=== PATIENT | female | born 1995 | race Caucasian/White ===

== ENCOUNTER 2016-05-20 18:59 | Emergency (ER) | payer SELFPAY ==
[2016-05-20 19:05] VITALS: BP 125/71
--- NOTE | 2016-05-20 19:15 | ER Document Report ---
ED Medical Screen (RME) - General Stated Complaint: ABDOMINAL CRAMPING Time seen by provider: 19:13 Mode of Arrival: Ambulatory Information source: Patient Notes: 20-year-old female that had 2 positive tests at home on May 12 and has some mild midline pelvic cramping. While she was at work today she got lightheaded and dizzy. G1. no vaginal bleeding. No dysuria. No fever. LMP 12 -28-16 TRAVEL OUTSIDE OF THE [place] IN LAST 30 DAYS: No Past Medical History - Immunizations Hx Diphtheria, Pertussis, Tetanus Vaccination: Yes Physical Exam - Vital signs Vitals: Temp Pulse Resp BP Pulse Ox 98.5 F 91 18 125/71 100 05/20/16 19:04 05/20/16 19:04 05/20/16 19:04 05/20/16 19:04 05/20/16 19:04 Course - Vital Signs Vital signs: Temp Pulse Resp BP Pulse Ox 98.5 F 91 18 125/71 100 05/20/16 19:04 05/20/16 19:04 05/20/16 19:04 05/20/16 19:04 05/20/16 19:04
[2016-05-20 19:56] LABS: APPEARANCE,URINE CLEAR; BILIRUBIN,URINE NEGATIVE (NEGATIVE); GLUCOSE, URINE 50 mg/dL (NEGATIVE); KETONES,URINE NEGATIVE (NEGATIVE); LEUKOCYTE ESTERASE,URINE TRACE (NEGATIVE); NITRITE,URINE NEGATIVE (NEGATIVE); PROTEIN,URINE NEGATIVE (NEGATIVE); URINE SPECIFIC GRAVITY 1.011; UROBILINOGEN,URINE NEGATIVE mg/dL (<2.0)
--- NOTE | 2016-05-20 20:43 | ER Document Report ---
ED GI/ - General Chief Complaint: Dizziness Stated Complaint: ABDOMINAL CRAMPING Mode of Arrival: Ambulatory Notes: Patient is a 20-year-old female presents emergency Department complaining of abdominal cramping for 2 weeks as well as burning with urination. Patient states that she hasn't had a period since 04/05/2016. Recently took a test which was positive so she came in for evaluation. Patient is a with otherwise no other past medical history, past surgical history, social history. She denies any allergies. She admits to light spotting couple weeks ago but otherwise intermittent abdominal cramping daily. Eyes any nausea , vomiting, diarrhea, constipation. Last bowel movement was today which was normal. TRAVEL OUTSIDE OF THE [place] IN LAST 30 DAYS: No - Related Data Allergies/Adverse Reactions: No Known Allergies Allergy (Unverified 05/20/16 20:24) Past Medical History - General Information source: Patient - Social History Smoking Status: Never Smoker Family History: Reviewed & Not Pertinent Renal/ Medical History: Denies: Hx Peritoneal Dialysis Surgical Hx: Negative - Immunizations Hx Diphtheria, Pertussis, Tetanus Vaccination: Yes Review of Systems - Review of Systems Constitutional: No symptoms reported EENT: No symptoms reported Cardiovascular: No symptoms reported Respiratory: No symptoms reported Gastrointestinal: No symptoms reported Genitourinary: No symptoms reported Female Genitourinary: See HPI Musculoskeletal: No symptoms reported Skin: No symptoms reported Hematologic/Lymphatic: No symptoms reported Neurological/Psychological: No symptoms reported Physical Exam - Vital signs Vitals: Temp Pulse Resp BP Pulse Ox 98.5 F 91 18 125/71 100 05/20/16 19:04 05/20/16 19:04 05/20/16 19:04 05/20/16 19:04 05/20/16 19:04 - Notes Notes: PHYSICAL EXAM GENERAL: Alert, interacts well. LUNGS: Clear to auscultation bilaterally, no wheezes, rales, or rhonchi. No respiratory distress. HEART: Regular rate and rhythm. No murmurs, gallops, or rubs. ABDOMEN: Soft, nondistended, nontender. No guarding, rebound, or rigidity.. Bowel sounds present in all 4 quadrants. Female exam deferred EXTREMITIES: Moves all 4 extremities spontaneously. No edema, radial and dorsalis pedis pulses 2/4 bilaterally. No cyanosis. NEUROLOGICAL: Alert and oriented x3. Normal speech. PSYCH: Normal affect, normal mood. SKIN: Warm, dry, normal turgor. No rashes or lesions noted. Course - Re-evaluation Re-evalutation: 05/20/16 20:43 Patient is a 20-year-old female who complains of abdominal cramping for the past 2 weeks but otherwise denies any other pain or symptoms. Transvaginal ultrasound reveals a living IUP about 6 weeks, was not able to obtain a heart rate. Analysis reveals a UTI. Patient otherwise feeling well and like to go home. Patient has a follow-up appointment scheduled for May 24 with OB/ [facility] will send her home with ultrasound read and lab work from today. She denies any questions - Vital Signs Vital signs: Temp Pulse Resp BP Pulse Ox 98.5 F 91 18 125/71 100 05/20/16 19:11 05/20/16 19:11 05/20/16 19:11 05/20/16 19:11 05/20/16 19:11 - Laboratory Laboratory results interpreted by me: 05/20/16 05/20/16 19:30 19:35 Beta HCG, Quant 03964.00 H Urine Glucose (UA) 50 H Ur Leukocyte Esterase TRACE H Discharge - Discharge Clinical Impression: Qualifiers: Weeks of gestation: less than 8 weeks Qualified Code(s): Z3A.01 - Less than 8 weeks gestation of UTI (urinary tract infection) Qualifiers: Urinary tract infection type: acute cystitis Hematuria presence: without hematuria Qualified Code(s): N30.00 - Acute cystitis without hematuria Condition: Good Disposition: HOME, SELF-CARE Instructions: Nitrofurantoin ([facility]), Urinary Tract Infection ([facility]) Additional Instructions: You are . care is best started as early in as possible. If you're unsure about continuing this , you should discuss this with your physician or with wine consultant at [facility]. You should take only medications approved by your physician. Acetaminophen can safely be taken for minor pains. As a rule, medication for chronic conditions such as asthma or seizures can safely be continued. You should discuss with the physician every medicine you take. Any regular exercise program can be continued. Talk to your physician, however, before engaging in competitive or demanding sports. Alcohol, smoking, and "street drugs" are dangerous to your baby. Cocaine is especially dangerous. Don't use any illicit drugs! Please be sure to start a vitamin with folate acid included. These are available at any drug store and most grocery stores. Prescriptions: Nitrofurantoin/Nitrofuran Mac [Macrobid 100 mg Capsule] 1 tab PO BID #20 capsule
== END 2016-05-20 21:20 | disposition home or self-care (01) ==
LOC: ER 18:59
DX: O23.11 Infections of bladder in pregnancy, first trimester (principal); N30.00 Acute cystitis without hematuria; R42 Dizziness and giddiness; R10.9 Unspecified abdominal pain; Z3A.01 Less than 8 weeks gestation of pregnancy
CPT/HCPCS: 36415; 76817; 81001; 84702; 87086; 99284

== ENCOUNTER 2016-06-23 23:20 | Emergency (ER) | payer MEDICAID ==
[2016-06-24 00:11] LABS: AMORPHOUS SEDIMENT,URINE TRACE /HPF; APPEARANCE,URINE SLIGHTLY-CLOUDY; BILIRUBIN,URINE NEGATIVE (NEGATIVE); GLUCOSE, URINE NEGATIVE (NEGATIVE); KETONES,URINE NEGATIVE (NEGATIVE); LEUKOCYTE ESTERASE,URINE TRACE (NEGATIVE); NITRITE,URINE NEGATIVE (NEGATIVE); PROTEIN,URINE NEGATIVE (NEGATIVE); URINE SPECIFIC GRAVITY 1.005; UROBILINOGEN,URINE NEGATIVE mg/dL (<2.0)
--- NOTE | 2016-06-24 03:04 | ER Document Report ---
HPI - HPI Patient complains to provider of: low back pain Onset: Other - 2-3 weeks Onset/Duration: Intermittent, Persistent Quality of pain: Achy Pain Level: 4 Context: 20-year-old female G1 that is 11 weeks 2 days is complaining of low back pain that hurts more when she moves. She has no pelvic or abdominal pain. No vaginal bleeding. She has had several negative urinalysis and is seen by the [facility]. No fever or chills. No nausea vomiting. No vaginal discharge. No saddle anesthesia and no radiculopathy. Associated Symptoms: None Exacerbated by: Movement Relieved by: Denies Similar symptoms previously: Yes Recently seen / treated by doctor: Yes - ROS ROS below otherwise negative: Yes Systems Reviewed and Negative: Yes All other systems reviewed and negative - REPRODUCTIVE LMP: 04/05/16 - DERM Skin Color: Normal, [place] Past Medical History - General Information source: Patient - Social History Smoking Status: Never Smoker Chew tobacco use (# tins/day): No Frequency of alcohol use: None Drug Abuse: None Family History: Reviewed & Not Pertinent - Medical History Medical History: Negative Renal/ Medical History: Denies: Hx Peritoneal Dialysis Surgical Hx: Negative - Immunizations Hx Diphtheria, Pertussis, Tetanus Vaccination: Yes Vertical Provider Document - CONSTITUTIONAL Agree With Documented VS: Yes Exam Limitations: No Limitations - INFECTION CONTROL TRAVEL OUTSIDE OF THE [place] IN LAST 30 DAYS: No - HEENT HEENT: Normocephalic - NECK Neck: Supple - RESPIRATORY Respiratory: Breath Sounds Normal, No Respiratory Distress O2 Sat by Pulse Oximetry: 99 - CARDIOVASCULAR Cardiovascular: Regular Rate, Regular Rhythm - GI/ABDOMEN Gastrointestinal: Abdomen Soft, Abdomen Non-Tender Notes: Fundus at pubis - BACK Back: Normal Inspection. negative: CVA Tenderness-Right, CVA Tenderness-Left - MUSCULOSKELETAL/EXTREMETIES Musculoskeletal/Extremeties: MAEW, FROM, Tender - bilateral lumbar to sacral iliac muscles - NEURO Level of Consciousness: Awake, Alert Motor/Sensory: No Motor Deficit, No Sensory Deficit - DERM Integumentary: Warm, Dry, No Rash Notes: heart tones 164 Course - Re-evaluation Re-evalutation: 06/24/16 03:18 heart tones 164m urinalysis does not indicate UTI, urine culture is pending. pt does not want tylenol offered. - Vital Signs Vital signs: Temp Pulse Resp BP Pulse Ox 98.5 F 82 16 135/75 H 99 06/23/16 23:26 06/23/16 23:26 06/23/16 23:26 06/23/16 23:26 06/23/16 23:26 - Laboratory Laboratory results interpreted by me: 06/23/16 23:30 Ur Leukocyte Esterase TRACE H Discharge - Discharge Clinical Impression: Low back pain Qualifiers: Chronicity: acute Back pain laterality: bilateral Sciatica presence: without sciatica Qualified Code(s): M54.5 - Low back pain Viable Qualifiers: Trimester: first trimester Qualified Code(s): Z34.91 - Encounter for supervision of normal , unspecified, first trimester Condition: Good Disposition: HOME, SELF-CARE Instructions: [facility] [place], [facility] ( [facility]), Low Back Pain ([facility]), Acetaminophen Additional Instructions: Urine culture is pending Tylenol for discomfort Heart tones were 164 Return to the emergency room for any pelvic, abdominal pain, vaginal bleeding or any concerns See the health Department for follow-up as planned
[2016-06-24 03:45] VITALS: BP 125/77
== END 2016-06-24 03:40 | disposition home or self-care (01) ==
LOC: ER 23:20
DX: O99.89 Other specified diseases and conditions complicating pregnancy, childbirth and the puerperium (principal); M54.5 Low back pain; Z3A.11 11 weeks gestation of pregnancy
CPT/HCPCS: 81001; 87086; 99283

== ENCOUNTER 2016-10-16 17:25 | Outpatient (CLI) | payer MEDICAID ==
[2016-10-16 18:14] LABS: AMORPHOUS SEDIMENT,URINE TRACE /HPF; APPEARANCE,URINE CLEAR; BILIRUBIN,URINE NEGATIVE (NEGATIVE); GLUCOSE, URINE NEGATIVE (NEGATIVE); KETONES,URINE NEGATIVE (NEGATIVE); LEUKOCYTE ESTERASE,URINE TRACE (NEGATIVE); NITRITE,URINE NEGATIVE (NEGATIVE); PROTEIN,URINE NEGATIVE (NEGATIVE); URINE SPECIFIC GRAVITY 1.003; UROBILINOGEN,URINE NEGATIVE mg/dL (<2.0)
[2016-10-16 18:39] LABS: URINE BARBITURATES SCREEN NEGATIVE; URINE METHADONE SCREEN NEGATIVE; URINE OPIATES LOW NEGATIVE; URINE PHENCYCLIDINE SCREEN NEGATIVE
--- NOTE | 2016-10-16 19:17 | RADIOLOGY REPORT (SQ) ---
EXAM DESCRIPTION: U/S OB LIMITED COMPLETED DATE/TIME: 10/16/2016 7:07 pm REASON FOR STUDY: cervical length COMPARISON: 05/20/2016 TECHNIQUE: Limited transabdominal grayscale ultrasound for evaluation of specific requested obstetri marissa parameters. LIMITATIONS: None. FINDINGS: CERVICAL LENGTH: 4.6 cm Closed. FHR: 136 beats per minute. PRESENTATION: Cephalic. OTHER: No other significant findings. IMPRESSION: LIMITED OBSTETRICAL ULTRASOUND WITH MEASURED PARAMETERS DELINEATED ABOVE. Trimester of : Third trimester - 28 weeks to delivery. TECHNICAL DOCUMENTATION: JOB ID: [id number] [employer]- All Rights Reserved
== END 2016-10-16 19:36 | disposition home or self-care (01) ==
LOC: LC 17:25
PROVIDERS: ATTEND Obstetrics & Gynecology
DX: O47.03 False labor before 37 completed weeks of gestation, third trimester (principal)
CPT/HCPCS: 76815; 80307; 81001

== ENCOUNTER 2016-11-01 22:01 | Outpatient (CLI) | payer MEDICAID ==
[2016-11-01 23:07] LABS: APPEARANCE,URINE SLIGHTLY-CLOUDY; BILIRUBIN,URINE NEGATIVE (NEGATIVE); GLUCOSE, URINE NEGATIVE (NEGATIVE); KETONES,URINE NEGATIVE (NEGATIVE); LEUKOCYTE ESTERASE,URINE NEGATIVE (NEGATIVE); NITRITE,URINE NEGATIVE (NEGATIVE); PROTEIN,URINE NEGATIVE (NEGATIVE); URINE SPECIFIC GRAVITY 1.003; UROBILINOGEN,URINE NEGATIVE mg/dL (<2.0)
[2016-11-01 23:24] LABS: URINE BARBITURATES SCREEN NEGATIVE; URINE METHADONE SCREEN NEGATIVE; URINE OPIATES LOW NEGATIVE; URINE PHENCYCLIDINE SCREEN NEGATIVE
--- NOTE | 2016-11-02 00:05 | RADIOLOGY REPORT (SQ) ---
EXAM DESCRIPTION: U/S OB LIMITED COMPLETED DATE/TIME: 11/01/2016 11:47 pm REASON FOR STUDY: cervical length r/o PTL COMPARISON: None. TECHNIQUE: Limited transvaginal grayscale ultrasound for evaluation of specific requested obstetrica l parameters. LIMITATIONS: None. FINDINGS: CERVICAL LENGTH: 3.8 cm Closed. FHR: 137 beats per minute. PRESENTATION: Cephalic. OTHER: No other significant findings. IMPRESSION: LIMITED OBSTETRICAL ULTRASOUND WITH MEASURED PARAMETERS DELINEATED ABOVE. Trimester of : Third trimester - 28 weeks to delivery. TECHNICAL DOCUMENTATION: JOB ID: [id number] [employer]- All Rights Reserved
== END 2016-11-02 00:11 | disposition home or self-care (01) ==
LOC: LC 22:01
PROVIDERS: ATTEND Student in an Organized Health Care Education/Training Program
PROC: 4A1HXCZ Monitoring of Products of Conception, Cardiac Rate, External Approach (ICD-10-PCS; principal; 2016-11-01)
DX: O47.03 False labor before 37 completed weeks of gestation, third trimester (principal); Z3A.29 29 weeks gestation of pregnancy
CPT/HCPCS: 76815; 80307; 81001

== ENCOUNTER 2016-11-02 00:23 | Emergency (ER) | payer MEDICAID ==
--- NOTE | 2016-11-02 01:23 | ER Document Report ---
ED General - General Chief Complaint: Swelling of Lower Extremity Stated Complaint: SWOLLEN ANKLE/FOOT Time Seen by Provider: 11/02/16 01:19 Mode of Arrival: Ambulatory Information source: Patient Notes: Is a 21-year-old female who is 1, para 0 who presents to the emergency room with left lower extremity swelling. The patient states she has had a long history of left ankle swelling. She also states that it seems to be worse towards the third trimester. She denies any calf pain. She denies any chest pain or shortness of breath. She denies any history of problems with her kidneys for blood pressure. She was seen up in labor and delivery and "had the baby checked" and sent back down to the ER. TRAVEL OUTSIDE OF THE [place] IN LAST 30 DAYS: No - HPI Onset: Other - On and off for the past month Onset/Duration: Gradual Quality of pain: No pain Severity: None Pain Level: Denies Associated symptoms: denies: Chest pain, Fever, Shortness of breath Exacerbated by: Denies Relieved by: Denies Similar symptoms previously: Yes Recently seen / treated by doctor: Yes - Related Data Allergies/Adverse Reactions: No Known Allergies Allergy (Verified 11/02/16 00:46) Home Medications: Current Home Medications Metronidazole 1 tab PO BID 11/02/16 [History] Past Medical History - General Information source: Patient - Social History Smoking Status: Never Smoker Cigarette use (# per day): No Chew tobacco use (# tins/day): No Frequency of alcohol use: None Drug Abuse: None Lives with: Spouse/Significant other Family History: Reviewed & Not Pertinent Patient has suicidal ideation: No Patient has homicidal ideation: No - Medical History Medical History: Negative Renal/ Medical History: Denies: Hx Peritoneal Dialysis Surgical Hx: Negative - Immunizations Hx Diphtheria, Pertussis, Tetanus Vaccination: Yes Review of Systems - Review of Systems Constitutional: denies: Chills, Fever EENT: No symptoms reported Cardiovascular: No symptoms reported Respiratory: No symptoms reported Gastrointestinal: No symptoms reported Genitourinary: No symptoms reported Female Genitourinary: No symptoms reported Musculoskeletal: See HPI Skin: No symptoms reported Hematologic/Lymphatic: No symptoms reported Neurological/Psychological: No symptoms reported Physical Exam - Vital signs Vitals: Temp Pulse Resp BP Pulse Ox 98.1 F 79 18 119/68 99 11/02/16 00:47 11/02/16 00:47 11/02/16 00:47 11/02/16 00:47 11/02/16 00:47 Notes: Physical exam: GENERAL: 21-year-old female, alert and oriented 3, no acute distress HEAD: Atraumatic, normocephalic. EYES: Pupils equal round and reactive to light, extraocular movements intact, sclera anicteric, conjunctiva are normal. ENT: TMs normal, nares patent, oropharynx clear without exudates. Moist mucous membranes. NECK: Normal range of motion, supple without lymphadenopathy or JVD. LUNGS: Breath sounds clear to auscultation bilaterally and equal. No wheezes rales or rhonchi. HEART: Regular rate and rhythm without murmurs, rubs or gallops. ABDOMEN: Soft, normoactive bowel sounds. No tenderness to palpation. No guarding, no rebound. No masses appreciated. EXTREMITIES: Patient does have swelling of the left foot compared to the right. The swelling does not seem to extend up into the calf. Her toes are good cap refill. She has good pulses. There is no skin changes. Both feet are equally warm. There is no calf tenderness. NEUROLOGICAL: Cranial nerves II through XII grossly intact. Normal speech, normal gait. PSYCH: Normal mood, normal affect. SKIN: Warm, Dry, normal turgor, no rashes or lesions noted. Course - Re-evaluation Re-evalutation: 11/02/16 01:21 In general, the patient states she has a long history of swelling in the left ankle. It is worse now that she is 30 weeks . Her blood pressure is good. The urine sent up in labor and delivery shows no proteins. I will check her BUN and creatinine now. The other issue to think about is getting an outpatient Doppler. Dopplers are not available now. I will set her up to have one later today. However, I have low suspicion that this is a DVT given her long history of left ankle swelling. I think it is more pronounced because of her advancing . - Vital Signs Vital signs: Temp Pulse Resp BP Pulse Ox 98.1 F 79 18 119/68 99 11/02/16 00:47 11/02/16 00:47 11/02/16 00:47 11/02/16 00:47 11/02/16 00:47 - Laboratory Result Diagrams: 11/02/16 02:22 Laboratory results interpreted by me: 11/02/16 02:22 Chloride 109 H Carbon Dioxide 21 L BUN 5 L Discharge - Discharge Clinical Impression: Pedal edema Condition: Stable Disposition: HOME, SELF-CARE Additional Instructions: In review of your labs, your kidney function looks good. Your urine analysis was good. The swelling in the left leg may just be accentuated because of the advanced . The plan will be for you to get an outpatient lower extremity Doppler exam to make sure there is no evidence of blood clots (I filled out the paperwork for you to get that done and that is done here at this hospital during the day). I recommend you keep your feet elevated at night. You could try wearing compression stockings. Follow-up with your OB doctor. Forms: Follow-Up Outpatient Testing
[2016-11-02 02:49] LABS: ANION GAP 9 (5-19); BLOOD UREA NITROGEN 5 mg/dL (7-20); CALCIUM 8.6 mg/dL (8.4-10.2); CARBON DIOXIDE 21 mmol/L (22-30); CHLORIDE 109 mmol/L (98-107); CREATININE RESULT 0.52 mg/dL (0.52-1.25); GLUCOSE 102 mg/dL (75-110); POTASSIUM 3.7 mmol/L (3.6-5.0); SODIUM 138.5 mmol/L (137-145)
[2016-11-02 03:29] VITALS: BP 124/73
== END 2016-11-02 03:27 | disposition home or self-care (01) ==
LOC: ER 00:23
DX: O12.03 Gestational edema, third trimester (principal); Z3A.30 30 weeks gestation of pregnancy
CPT/HCPCS: 36415; 80048; 99283

== ENCOUNTER 2017-01-01 23:51 | Outpatient (CLI) | payer MEDICAID ==
[2017-01-02 00:24] LABS: APPEARANCE,URINE CLEAR; BILIRUBIN,URINE NEGATIVE (NEGATIVE); GLUCOSE, URINE NEGATIVE (NEGATIVE); KETONES,URINE NEGATIVE (NEGATIVE); LEUKOCYTE ESTERASE,URINE NEGATIVE (NEGATIVE); NITRITE,URINE NEGATIVE (NEGATIVE); PROTEIN,URINE NEGATIVE (NEGATIVE); URINE SPECIFIC GRAVITY 1.004; UROBILINOGEN,URINE NEGATIVE mg/dL (<2.0)
[2017-01-02 01:00] LABS: URINE BARBITURATES SCREEN NEGATIVE; URINE METHADONE SCREEN NEGATIVE; URINE OPIATES LOW NEGATIVE; URINE PHENCYCLIDINE SCREEN NEGATIVE
--- NOTE | 2017-01-02 01:13 | Non Stress Test Report ---
Non Stress Test Datetime Report Generated by CPN: 01/02/2017 01:13 DEMOGRAPHIC EGA NST: 38.6 INDICATION Indication for Study: Ordered by Provider MONITORING Monitor Explained: Monitor Explained; Test Explained; Patient Verbalized Understanding; Other Time on Monitor: 01/02/2017 00:12 Time off Monitor: 01/02/2017 01:03 NST Duration: 51 NST INTERVENTIONS NST Interventions: PO Hydration Physician Notified NST: Dr. Mccarthy BABY A: [id number] BABY A Movement : Present Contraction Frequency : occasional FHR Baseline : 120 Accelerations : 15X15 Decelerations : None Variability : Moderate 6-25bpm NST Review: Meets Criteria for Reactive NST NST Review and Verified By : LORIN Hall Results: Reactive NST REPORT Report Trigger: Send Report
== END 2017-01-02 01:12 | disposition home or self-care (01) ==
LOC: LC 23:51
PROVIDERS: ATTEND Student in an Organized Health Care Education/Training Program
PROC: 4A1HXCZ Monitoring of Products of Conception, Cardiac Rate, External Approach (ICD-10-PCS; principal; 2017-01-01)
DX: O47.1 False labor at or after 37 completed weeks of gestation (principal); Z3A.38 38 weeks gestation of pregnancy
CPT/HCPCS: 59025; 80307; 81005

== ENCOUNTER 2017-01-07 23:12 | Inpatient (IN) | payer MEDICAID ==
[2017-01-07] MEDS ORDERED: RINGERS SOLUTION,LACTATED 1,000 ML IV PRN (23:33)
[2017-01-07 23:55] LABS: APPEARANCE,URINE CLOUDY; BILIRUBIN,URINE NEGATIVE (NEGATIVE); GLUCOSE, URINE NEGATIVE (NEGATIVE); KETONES,URINE NEGATIVE (NEGATIVE); LEUKOCYTE ESTERASE,URINE TRACE (NEGATIVE); NITRITE,URINE NEGATIVE (NEGATIVE); PROTEIN,URINE NEGATIVE (NEGATIVE); URINE SPECIFIC GRAVITY 1.004; UROBILINOGEN,URINE NEGATIVE mg/dL (<2.0)
[2017-01-07 23:59] LABS: ABSOLUTE EOSINOPHILS # (AUTO) 0.1 10^3/uL (0.0-0.6); ABSOLUTE LYMPHOCYTES (AUTO) 2.7 10^3/uL (0.5-4.7); ABSOLUTE MONOCYTES (AUTO) 1.4 10^3/uL (0.1-1.4); ABSOLUTE NEUT (AUTO) 8.4 10^3/uL (1.7-8.2); BASOPHILS % (AUTO) 0.4 % (0-2); EOSINOPHILS % (AUTO) 0.8 % (0-6); HEMATOCRIT 31.3 % (36.0-47.0); HEMOGLOBIN 10.5 g/dL (12.0-15.5); HGB HCT DIFFERENCE 0.2; LYMPHOCYTES % (AUTO) 21.5 % (13-45); MEAN CORPUSCULAR HEMOGLOBIN 29.1 pg (27.0-33.4); MEAN CORPUSCULAR HGB CONC 33.6 g/dL (32.0-36.0); MEAN CORPUSCULAR VOLUME 87 fl (80-97); MONOCYTES % (AUTO) 11.3 % (3-13); RED BLOOD COUNT 3.61 10^6/uL (3.72-5.28); RED CELL DISTRIBUTION WIDTH 14.8 % (11.5-14.0); WHITE BLOOD COUNT 12.7 10^3/uL (4.0-10.5)
[2017-01-08 00:14] LABS: URINE BARBITURATES SCREEN NEGATIVE; URINE METHADONE SCREEN NEGATIVE; URINE OPIATES LOW NEGATIVE; URINE PHENCYCLIDINE SCREEN NEGATIVE
[2017-01-08] MEDS ORDERED: DINOPROSTONE 10 MG VAGINAL INSERT.SR PV ONE (00:18)
[2017-01-08] MEDS ORDERED: DINOPROSTONE 10 MG VAGINAL INSERT.SR ONE (00:26)
[2017-01-08] MEDS ORDERED: CITRIC ACID/SODIUM CITRATE ORAL SOLN 15 ML UDCUP PO ONE (00:47)
[2017-01-08] MEDS ORDERED: CITRIC ACID/SODIUM CITRATE ORAL SOLN 15 ML UDCUP ONE (00:53)
[2017-01-08 01:26] LABS: CHLAM PCR NOT DETECTED (NOT DETECT)
[2017-01-08] MEDS ORDERED: ACETAMINOPHEN 325 MG TABLET ONE (13:10)
[2017-01-08] MEDS ORDERED: OXYTOCIN/NORMAL SALINE 20 UNIT/1,000 ML RTUINJ ONE (13:34)
[2017-01-08] MEDS ORDERED: PROMETHAZINE HCL INJ 25 MG/1 ML VIAL ONE (15:43)
[2017-01-08] MEDS ORDERED: NALBUPHINE HCL INJ 10 MG/1 ML AMPULE ONE (15:43)
--- NOTE | 2017-01-08 15:49 | L&D Progress Notes ---
PROGRESS NOTES Datetime Report Generated by CPN: 01/08/2017 15:49 PROGRESS NOTE Impression: Premature Rupture of Membranes Procedures: Sterile Vag Exam Plan: Continue Present Management; Induction Informed Consent Obtained: Vaginal Delivery; Induction of Labor; Risks, Benefits and Alternatives Discussed Informed Consent Obtained: Vaginal Delivery; Risks, Benefits and Alternatives Discussed Vital Signs : Reviewed; Within Normal Limits Comment: S: reports increased pain desires pain medication at this time O: as stated above, pit @ 10mu/min A: PROM at 2240 last night IOL with cervidil this AM and now on pit-stable P: continue IOL with pitocin, nubain 10mg IV and phenergan 12.5mg IV for pain now, epidural prn. Pt. and FOB asked questions and verbalized understanding. VAGINAL EXAM Dilatation: 3 Dilatation: 1 Effacement: 80 Effacement: 60 Station: -2 Station: -2 Contractions: 1.5-3 Contractions: none MEMBRANES Pooling: Positive Membranes: Ruptured Membranes: Ruptured Amniotic Fluid Color: Clear Amniotic Fluid Color: Clear FETUS A Monitoring: External US FHR Category: Category I Presentation: Vertex SIGNATURE SIGNATURE: ,[id number];,[id number] SIGNATURE: [id number] Assignment: Cedric Anderson DO Signature: with User ID: Gloria : with User ID: [email or web address]
[2017-01-08] MEDS ORDERED: PENICILLIN G POTASSIUM 5,000,000 UNIT in DEXTROSE 5%-WATER 100 ML IV ONE (18:10)
[2017-01-08] MEDS ORDERED: PENICILLIN G-K 5 MILLION UNIT VIAL ONE ×2 (18:12→22:13)
[2017-01-08] MEDS: PENICILLIN G-K 5 MILLION UNIT VIAL IV SCH (18:27)
[2017-01-08] MEDS ORDERED: EPHEDRINE SULFATE INJ 50 MG/1 ML AMPULE ONE (19:26)
[2017-01-08] MEDS ORDERED: FENTANYL/BUPIVACAINE/NS/PF 200 MCG/100 ML RTUINJ EPI ONE (19:27)
[2017-01-08] MEDS ORDERED: BUPIVACAINE HCL 0.25 % INJ/PF (2.5 MG/1 ML) 30 ML VIAL ONE (19:27)
[2017-01-08] MEDS ORDERED: PENICILLIN G POTASSIUM 2,500,000 UNIT in DEXTROSE 5%-WATER 50 ML IV SCH (22:10)
[2017-01-09] MEDS ORDERED: DIPHENHYDRAMINE HCL 50 MG/ML VIAL IV ONE (02:01)
[2017-01-09] MEDS ORDERED: DIPHENHYDRAMINE HCL 50 MG/ML VIAL ONE (02:06)
[2017-01-09] MEDS ORDERED: LIDOCAINE 1% INJ-PF (10 MG/ML) 30 ML SDV ONE (02:13)
[2017-01-09] MEDS ORDERED: OXYTOCIN/NORMAL SALINE 20 UNIT/1,000 ML RTUINJ ONE (02:13)
[2017-01-09] MEDS ORDERED: MISOPROSTOL 0.2 MG TABLET ONE (02:13)
[2017-01-09] MEDS ORDERED: METHYLERGONOVINE MALEATE INJ/PF 0.2 MG/1 ML AMPULE ONE (03:39)
[2017-01-09] MEDS ORDERED: IBUPROFEN 800 MG TABLET ONE (03:59)
[2017-01-09] MEDS: PENICILLIN G-K 5 MILLION UNIT VIAL IV SCH (04:01)
[2017-01-09] MEDS ORDERED: CEFAZOLIN 2 GM/D5W RTU 2 GM/50 ML RTUPB IV ONE (04:53)
[2017-01-09] MEDS ORDERED: DIBUCAINE 1% OINTMENT 28 GM TP PRN (05:11)
[2017-01-09] MEDS ORDERED: MEASLES,MUMPS&RUBELLA VACC/PF 0.5 ML VIAL SUBCUT PRN (05:11)
[2017-01-09] MEDS ORDERED: DIPH/PERTUSS(ACELL)/TETANUS VAC/PF 0.5 ML SYR (>=10YO) IM PRN (05:11)
[2017-01-09] MEDS ORDERED: ACETAMINOPHEN WITH CODEINE #3 TABLET PO PRN (05:11)
[2017-01-09] MEDS ORDERED: ZOLPIDEM TARTRATE 5 MG TABLET PO PRN (05:11)
[2017-01-09] MEDS ORDERED: BENZOCAINE/MENTHOL AEROSOL SPRAY 56 ML TOP PRN (05:11)
[2017-01-09] MEDS ORDERED: OXYTOCIN/NORMAL SALINE 1,000 ML IV PRN (05:11)
--- NOTE | 2017-01-09 05:53 | Admission Physical ---
Datetime Report Generated by CPN: 01/09/2017 05:53 CURRENT ADMISSION Chief Complaint: Suspected Ruptured Membranes Indication for Induction: PROM Indication for Induction: Term, Intrauterine Admit Plan: Admit to Unit; Initiate Labor Induction Protocol ALLERGIES Medication Allergies: No Medication Allergies: No Known Allergies (01/08/2017) Medication Allergies: No Known Allergies (01/02/2017) Medication Allergies: No Known Allergies (11/02/2016) Medication Allergies: No Known Allergies (06/23/2016) Latex: No Latex Allergies Food Allergies: no Environmental Allergies: no OBSTETRICAL HISTORY EDC: 01/10/2017 00:00 : 1 Para: 0 Term: 0 : 0 SAB: 0 IAB: 0 Ectopic: 0 Livin Cesareans: 0 VBACs: 0 Multiple Births: 0 Gestational Diabetes: No Rh Sensitization: No Incompetent Cervix: No GERBER: No Infertility: No ART Treatment: No Uterine Anomaly: No IUGR: No Hx Previous C/S: No Macrosomia: No Hx Loss/Stillborn: No PIH: No Hx : No Placenta Previa/Abruption: No Depression/PP Depression: Yes PTL/PROM: Unknown Post Hemorrhage: No Current Procedures: Ultrasound Obstetrical History Comments: current G1 SEE RECORDS Alcohol: No Marijuana : No Cocaine: No Other Illicit Drugs: No Cigarettes: Never Smoker. [id number] MEDICAL HISTORY Diabetes: No Blood Transfusion: No Pulmonary Disease (Asthma, TB): No Breast Disease: No Hypertension: No Application Security Consultant Surgery: No Heart Disease: No Hosp/Surgery: No Autoimmune Disorder: No Anesthetic Complications: No Kidney Disease: Yes Abnormal Pap Smear: No Neuro/Epilepsy: No Psychiatric Disorders: No Other Medical Diseases: No Hepatitis/Liver Disease: No Significant Family History: No Varicosities/Phlebitis: No Trauma/Violence : No Thyroid Dysfunction: No Medical History Comments: depression not formally diagnosed UTIs INFECTIOUS HISTORY Gonorrhea: No Genital Herpes: No Chlamydia: Yes Tuberculosis: No Syphilis: No Hepatitis: No HIV/AIDS Exposure: No Rash or Viral Illness: No HPV: No Infectious History Comments: chlamydia early BV 06/2016 and 10/2016 PHYSICAL EXAM General: Normal HEENT: Normal Neurologic: Normal Thyroid: Normal Heart: Normal Lungs: Normal Breast: Deferred Back: Normal Abdomen: Normal Genitourinary Exam: Normal Extremities: Normal DTRs: Normal Pelvic Type: Adequate Vital Signs: Reviewed VAGINAL EXAM Dilatation: 3 Dilatation: 1 Effacement: 80 Effacement: 60 Station: -2 Station: -2 Contraction Comments: 1.5-3 Contraction Comments: none MEMBRANES Pooling: Positive Membranes: Ruptured Membranes: Ruptured Amniotic Fluid Color: Clear Amniotic Fluid Color: Clear FETUS A EGA: 39.5 Monitoring: External US FHR- Baseline: 125 Variability: Moderate 6-25bpm Accelerations: 15X15 Decelerations: None FHR Category: Category I Presentation: Vertex Admit Comment: 21yo at 39+5ega presents for ROM clear fluid at 2240. Pt with broken care b/w [place], here and [facility]. H/o chlamydia durign . Anxiety, Varicella equivocal. GBS negative. Cvx very unfavorable at admission - will start with cervidil and then hopefully pitocin or pitocin/FB. Admit for IOL due to PROM. Anticipate . Pelvis adequate for QUINTON. Reassuring FWB. PLANS FOR LABOR AND DELIVERY Labor and Delivery: None Pain Management: Natural; Epidural Feeding Preference: Breast Benefit of Breast Feed Discussed: Yes Circumcision: N/A INFORMED CONSENT Informed Consent Obtained: Vaginal Delivery; Induction of Labor; Risks, Benefits and Alternatives Discussed Informed Consent Obtained: Vaginal Delivery; Risks, Benefits and Alternatives Discussed Signature: with User ID: [email or web address]
[2017-01-09] MEDS: IBUPROFEN 800 MG TABLET PO SCH ×3 (06:35→22:52)
[2017-01-09] MEDS ORDERED: INFLUENZA ADLT QUAD (36MOS+) 2017-18 VAC 0.5 ML SYR IM PRN (06:37)
--- NOTE | 2017-01-09 08:30 | PDOC PROGRESS REPORT ---
Subjective-OB Subjective: Post Delivery Day: 21 year old. Denies any needs at this time. Has not been up since coming to unit. Physical Exam (OB) Vital Signs: Temp Pulse Resp BP Pulse Ox 98.5 F 110 H 20 148/74 H 98 01/09/17 07:38 01/09/17 07:38 01/09/17 07:38 01/09/17 07:38 01/09/17 07:38 Intake & Output 01/08/17 01/09/17 01/10/17 06:59 06:59 06:59 Weight 75.75 kg - Lochia Lochia Amount: Small 10-25 ml Lochia Color: Rubra/Red - Abdomen Description: Soft, Round Hernia Present: No Bowel Sounds: Normoactive Flatus Presence: Present Stool: No Fundal Description: Firm, Midline Fundal Height: u/u - u/2 Objective-Diagnostic Laboratory: 01/07/17 23:43
[2017-01-09] MEDS: FERROUS SULFATE 325 MG TABLET PO SCH ×2 (09:18→18:49)
[2017-01-09] MEDS: PRENATAL VITAMIN W-O CA NO5/FE FUMARATE/FA CAPSULE PO SCH (09:19)
[2017-01-09] MEDS: DOCUSATE SODIUM 100 MG CAPSULE PO SCH ×2 (09:19→18:48)
[2017-01-09] MEDS: SENNOSIDES/DOCUSATE 8.6-50 MG 1 EACH TABLET PO SCH (09:19)
[2017-01-09] MEDS: CEFAZOLIN 2 GM/D5W RTU 2 GM/50 ML RTUPB IV SCH ×2 (09:20→18:49)
[2017-01-09] MEDS: ACETAMINOPHEN WITH CODEINE #3 TABLET PO PRN (20:39)
[2017-01-10] MEDS: CEFAZOLIN 2 GM/D5W RTU 2 GM/50 ML RTUPB IV SCH (02:00)
[2017-01-10] MEDS: IBUPROFEN 800 MG TABLET PO SCH ×3 (05:10→21:11)
[2017-01-10 08:18] LABS: HEMATOCRIT 24.5 % (36.0-47.0); HGB HCT DIFFERENCE -0.2; MEAN CORPUSCULAR HEMOGLOBIN 29.2 pg (27.0-33.4); MEAN CORPUSCULAR HGB CONC 32.9 g/dL (32.0-36.0); MEAN CORPUSCULAR VOLUME 89 fl (80-97); RED BLOOD COUNT 2.76 10^6/uL (3.72-5.28); RED CELL DISTRIBUTION WIDTH 15.3 % (11.5-14.0); WHITE BLOOD COUNT 14.5 10^3/uL (4.0-10.5)
--- NOTE | 2017-01-10 08:39 | PDOC PROGRESS REPORT ---
Subjective-OB Subjective: Post Delivery Day: 1 21 year old. Denies any needs at this time, states lochia is stable, pain well controlled, voiding without difficulty. Physical Exam (OB) Vital Signs: Temp Pulse Resp BP Pulse Ox 98.0 F 82 18 109/64 97 01/10/17 04:09 01/10/17 04:09 01/10/17 04:09 01/10/17 04:09 01/10/17 04:09 Intake & Output 01/09/17 01/10/17 01/11/17 06:59 06:59 06:59 Intake Total 450 Output Total 200 Balance 250 - Lochia Lochia Amount: Scant < 10 ml Lochia Color: Rubra/Red - Abdomen Description: Soft, Flat Hernia Present: No Fundal Description: Firm, Midline Fundal Height: u/u - u/2 Assessment and Plan(PN) - Assessment and Plan (1) Delivery normal Is this a current diagnosis for this admission?: Yes Plan: routine pp care discharge planning - Time Spent with Patient Time with patient: Less than 15 minutes Critical Time spent with patient: Less than 15 minutes Medications reviewed and adjusted accordingly: Yes - Disposition Anticipated Discharge: Home Within: within 24 hours
[2017-01-10 08:56] LABS: HEMOGLOBIN 8.1 g/dL (12.0-15.5)
[2017-01-10] MEDS: ACETAMINOPHEN WITH CODEINE #3 TABLET PO PRN ×2 (09:33→19:07)
[2017-01-10] MEDS: PRENATAL VITAMIN W-O CA NO5/FE FUMARATE/FA CAPSULE PO SCH (10:05)
[2017-01-10] MEDS: SENNOSIDES/DOCUSATE 8.6-50 MG 1 EACH TABLET PO SCH (10:06)
[2017-01-10] MEDS: DOCUSATE SODIUM 100 MG CAPSULE PO SCH ×2 (10:06→17:52)
[2017-01-10] MEDS: FERROUS SULFATE 325 MG TABLET PO SCH ×2 (10:06→17:52)
--- NOTE | 2017-01-10 10:38 | Delivery Summary ---
Del Sum A-C Datetime Report Generated by CPN: 01/10/2017 10:38 DELIVERY PERSONNEL DELIVERY PERSONNEL: [id number] Delivery Doctor:: Cedric Anderson, DO Labor and Delivery Nurse:: Maryse Chou RNvice president safety Nurse:: LORIN Cartwright/[employer] ATTENDANT: ELEONORA RivasA MATERNAL INFORMATION Delivery Anesthesia: Epidural Medications After Delivery: Pitocin Bolus-Please Comment; Methergine 0.2mg IM; Other-Please Comment Meds After Delivery Comment: pitocin 20 units in 1000 mL NSS Cytotec 1000mcg Estimated Blood Loss (ml): 400 Maternal Complications: Premature Rupture of Membranes; Prolonged Labor > 20 Hrs Provider Comments: of viable female in OA position Placenta delievered spontaneous and intact with 3v cord Fundus firm after Cytotec 1000mcg LABOR SUMMARY EDC: 01/10/2017 00:00 No. Babies in Womb: 1 Attempted: No Labor Anesthesia: Epidural LABOR INFORMATION Reason for Induction: Not Applicable Onset of Labor: 01/08/2017 15:50 Complete Dilatation: 01/09/2017 02:51 Cervical Ripening Agents: Cervidil Oxytocin: Augmentation Group B Beta Strep: negative Antibiotics # of Doses: 2 Antibiotics Time of Last Dose: 2224 Name of Antibiotic Given: PCN Steroids Given: None Reason Steroids Not Administered: Not Applicable MEMBRANES Membranes Rupture Method: Spontaneous Membranes Rupture Method: Artificial Rupture of Membranes: 01/08/2017 22:40 Rupture of Membranes: 01/07/2017 22:40 Length of Rupture (hr): 4.83 Length of Rupture (hr): 28.83 Amniotic Fluid Color: Clear Amniotic Fluid Color: Clear Amniotic Fluid Amount: Moderate Amniotic Fluid Amount: Moderate Amniotic Fluid Odor: Normal Amniotic Fluid Odor: Normal STAGES OF LABOR Stage 1 hr: 11 Stage 1 min: 1 Stage 2 hr: 0 Stage 2 min: 39 Stage 3 hr: 0 Stage 3 min: 2 Total Time in Labor hr: 11 Total Time in Labor min: 42 VAGINAL DELIVERY Episiotomy: None Laceration #1: Periurethral Laceration Extension #1: First Degree Laceration #2: None Laceration #3: None Laceration Repair: Yes Laceration Repair Note: REpaired with 3-0 chromic in usual fashion with good hemostasis Sponge Count Correct: Yes Sharps Count Correct: Yes CSECTION DELIVERY Primary Indication: N/A Secondary Indication: N/A CSection Incidence: N/A Labor: N/A Elective: N/A CSection Incision: N/A BABY A INFORMATION Infant Delivery Date/Time: 01/09/2017 03:30 Method of Delivery: Vaginal Method of Delivery: Vaginal Born in Route : No : N/A Forceps: N/A Vacuum Extraction: N/A Shoulder Dystocia : No PRESENTATION/POSITION BABY A Presentation: Cephalic Cephalic Presentation: Vertex Vertex Position: Left Occipital Anterior Breech Presentation: N/A PLACENTA INFORMATION BABY A Placenta Delivery Time : 01/09/2017 03:32 Placenta Method of Delivery: Spontaneous Placenta Method of Delivery: Spontaneous Placenta Status: Delivered SCORES BABY A Heart Rate 1 min: >100 bpm Resp Effort 1 min: Good Cry Reflex Irritability 1 min: Cough or Sneeze or Pulls Away Muscle Tone 1 min: Active Motion Color 1 min: Body [place], Extremities Blue Resuscitation Effort 1 min: Tactile Stimulation SCORE 1 MIN: 9 Heart Rate 5 min: >100 bpm Resp Effort 5 min: Good Cry Reflex Irritability 5 min: Cough or Sneeze or Pulls Away Muscle Tone 5 min: Active Motion Color 5 min: Body [place], Extremities Blue SCORE 5 MIN: 9 INFANT INFORMATION BABY A Gestational Age at Delivery: 39.6 Gestational Status: Full Term- 39- 40.6 Weeks Outcome : Liveborn Infant Condition : Stable Infant Sex: Female Sex: Female IDENTIFICATION BABY A Verification Date/Time: 01/09/2017 03:40 ID Band Number: [id number] Mother's Name Verified: Yes RN Verifying Infant: R Chatman, RNC Additional Verifying Personnel: B Guerra, RN WEIGHT/LENGTH BABY A Birthweight (gm): 3605 Infant Weight (lb): 7 Infant Weight (oz): 15 Length (in): 21.00 Length (cm): 53.34 CORD INFORMATION BABY A No. Cord Vessels: 3 Nuchal Cord : N/A Cord Blood Taken: Yes-For Storage (Mom's Blood type +) Infant Suction: Mouth; Nose ASSESSMENT BABY A Infant Complications: None Physical Findings at Delivery: Within Normal Limits Infant Respirations: Appears Normal Skin to Skin: Yes Skin to Skin Time (min): 60 Sterile Preparation Technician/ALS Called : No Infant Care By: K Leslie RN Transferred To: Nursery BABY B INFORMATION : N/A SIGNATURES Signature: with User ID: [email or web address]
[2017-01-11] MEDS: IBUPROFEN 800 MG TABLET PO SCH ×2 (05:07→13:40)
[2017-01-11] MEDS: SENNOSIDES/DOCUSATE 8.6-50 MG 1 EACH TABLET PO SCH (09:47)
[2017-01-11] MEDS: FERROUS SULFATE 325 MG TABLET PO SCH (09:47)
[2017-01-11] MEDS: DOCUSATE SODIUM 100 MG CAPSULE PO SCH (09:47)
[2017-01-11] MEDS: PRENATAL VITAMIN W-O CA NO5/FE FUMARATE/FA CAPSULE PO SCH (09:47)
[2017-01-11 11:13] VITALS: BP 138/81
--- NOTE | 2017-01-11 12:06 | PDOC DISCHARGE SUMMARY ---
Final Diagnosis Discharge Date: 01/11/17 - Final Diagnosis (1) Delivery normal Is this a current diagnosis for this admission?: Yes Discharge Data - Discharge Medication Home Medications: No122/Iron/Folic Acid [ Multi Tablet] 1 each PO DAILY 10/16/16 Reason(s) for Admission: Onset of Labor Procedures: NST, Management of Obstetric Complications Intrapartum Procedure(s): Spontaneous Vaginal Delivery Complication(s): Laceration-Periurethral Laceration-Degree: 1st - Diagnosis Test Laboratory: Temp Pulse Resp BP Pulse Ox 98.3 F 79 16 138/81 H 100 01/11/17 10:59 01/11/17 10:59 01/11/17 10:59 01/11/17 10:59 01/11/17 10:59 01/07/17 01/07/17 01/10/17 23:37 23:43 07:16 RBC 3.61 L 2.76 L Hgb 10.5 L 8.1 L D Hct 31.3 L 24.5 L Urine Opiates Screen NEGATIVE - Discharge information/Instructions Discharge Activity: Activity As Tolerated, Pelvic Rest, No tub bath Discharge Diet: Regular Disposition: HOME, SELF-CARE Follow up with: [facility] in: 4
== END 2017-01-11 14:10 | disposition home or self-care (01) | DRG 775 ==
LOC: LC 23:12 → LR 23:38 → 2S 01-09 05:52
PROVIDERS: ADMIT Obstetrics & Gynecology; ATTEND Obstetrics & Gynecology
PROC: 10E0XZZ Delivery of Products of Conception, External Approach (ICD-10-PCS; principal; 2017-01-09)
PROC: 0HQ9XZZ Repair Perineum Skin, External Approach (ICD-10-PCS; 2017-01-09)
PROC: 3E0234Z Introduction of Serum, Toxoid and Vaccine into Muscle, Percutaneous Approach (ICD-10-PCS; 2017-01-11)
DX: O42.02 Full-term premature rupture of membranes, onset of labor within 24 hours of rupture (principal); O63.0 Prolonged first stage (of labor); O71.82 Other specified trauma to perineum and vulva; Z3A.39 39 weeks gestation of pregnancy; Z37.0 Single live birth; Z23 Encounter for immunization
CPT/HCPCS: 36415; 80307; 81005; 85025; 85027; 86592; 86850; 86900; 86901; 87491; 87591; 90686; J0690; J1200; J2210; J2300; J2540; J2550; J2590; J3490

== ENCOUNTER 2017-07-06 03:47 | Emergency (ER) | payer MEDICAID ==
--- NOTE | 2017-07-06 04:59 | ER Document Report ---
HPI - HPI Pain Level: Denies Context: patient is a 21-year-old female presents emergency department after an anxiety attack. Patient states that she had been diagnosed with anxiety and since she had her baby and return to work she has been having them more frequently. She states that she did follow with [facility] about this since she delivered her baby and was started on Zoloft earlier today. She states that she is due to start her first dose tomorrow. She otherwise denies any previous history of taking anxiolytic such as Xanax, Valium or Ativan. At this time she denies any anxiety , suicidal, homicidal ideations. She denies any previous suicide attempts. She states that she feels silly for coming to the ER and just wants to go home. - CONSTITUTIONAL Constitutional: DENIES: Fever, Chills - EENT EENT: DENIES: Sore Throat - NEURO Neurology: DENIES: Headache - CARDIOVASCULAR Cardiovascular: DENIES: Chest pain - RESPIRATORY Respiratory: DENIES: Coughing - GASTROINTESTINAL Gastrointestinal: DENIES: Abdominal Pain - REPRODUCTIVE LMP: na Past Medical History - Social History Smoking Status: Never Smoker Chew tobacco use (# tins/day): No Frequency of alcohol use: None Drug Abuse: None Family History: Reviewed & Not Pertinent Patient has suicidal ideation: No Patient has homicidal ideation: No Renal/ Medical History: Denies: Hx Peritoneal Dialysis - Immunizations Hx Diphtheria, Pertussis, Tetanus Vaccination: Yes Vertical Provider Document - CONSTITUTIONAL Agree With Documented VS: Yes Notes: PHYSICAL EXAM GENERAL: Alert, interacts well. HEAD: Normocephalic, atraumatic. EYES: Pupils equal, round, and reactive to light. Extraocular movements intact. ENT: Oral mucosa moist, tongue midline. NECK: Full range of motion. Supple. Trachea midline. LUNGS: Clear to auscultation bilaterally, no wheezes, rales, or rhonchi. No respiratory distress. HEART: Regular rate and rhythm. No murmurs, gallops, or rubs. EXTREMITIES: Moves all 4 extremities spontaneously. No edema, radial and dorsalis pedis pulses 2/4 bilaterally. No cyanosis. NEUROLOGICAL: Alert and oriented x4. Normal speech. PSYCH: Normal affect, normal mood. SKIN: Warm, dry, normal turgor. No rashes or lesions noted. - INFECTION CONTROL TRAVEL OUTSIDE OF THE [place] IN LAST 30 DAYS: No Course - Re-evaluation Re-evalutation: 07/06/17 04:58 Patient is a 21-year-old female is hemodynamically stable, no acute distress. At this time she states that she feels fine and relaxing just wants to go home so she can go to sleep and go to work and take care of her family. She states that she has taken Benadryl in the past for anxiety attacks when they get really bad and she feels comfortable with doing that and following up with [facility]. She states that she will start her Zoloft today and discuss with [facility] if she does not like how she is feeling or if there is any side effects. At this time I do not suspect any suicidal or homicidal ideations or plan. Patient stable for discharge home - Vital Signs Vital signs: Temp Pulse Resp BP Pulse Ox 98.1 F 86 18 131/75 H 97 07/06/17 03:54 07/06/17 03:54 07/06/17 03:54 07/06/17 03:54 07/06/17 03:54 Discharge - Discharge Clinical Impression: Hx depression with anxiety Condition: Good Disposition: HOME, SELF-CARE Instructions: Anxiety ([facility]) Referrals: LENY SHEPHERD PA-C [Primary Care Provider] - Follow up in 1 week
[2017-07-06 05:02] VITALS: BP 121/56
== END 2017-07-06 05:02 | disposition home or self-care (01) ==
LOC: ER 03:47
DX: F41.9 Anxiety disorder, unspecified (principal); F32.9 Major depressive disorder, single episode, unspecified; Z79.899 Other long term (current) drug therapy
CPT/HCPCS: 99283

== ENCOUNTER 2017-08-09 17:12 | Emergency (ER) | payer MEDICAID, OTHER ==
[2017-08-09] MEDS ORDERED: PREDNISONE 20 MG TABLET PO ONE (17:46)
[2017-08-09] MEDS ORDERED: DIPHENHYDRAMINE HCL 50 MG CAPSULE PO ONE (17:46)
[2017-08-09] MEDS ORDERED: FAMOTIDINE 20 MG TABLET PO ONE (17:46)
--- NOTE | 2017-08-09 17:48 | ER Document Report ---
ED Medical Screen (RME) - General Chief Complaint: Allergic Reaction Stated Complaint: POSSIBLE ALLERGIC REACTION Time Seen by Provider: 08/09/17 17:46 Notes: RAPID MEDICAL EVALUATION DISCLOSURE I have seen this patient as part of a Rapid Medical Evaluation and, if applicable, placed any initially appropriate orders. The patient will be seen and fully evaluated, including a full history and physical exam, by a provider ( in Main ED or Fast Track) when a room becomes available. 21-year-old female recently started on Zoloft yesterday here with complaints of throat swelling and trouble breathing followed by feeling panicked/anxious that started approximately 45 minutes ago while she was at work. She states that she thinks it is a Zoloft. She took one dose yesterday at 9 AM and then another dose at 9 AM today. This is the only new thing in her life. She denies any rash itching difficulty swallowing. EXAM No stridor No uvular or facial edema Clear to auscultation bilaterally No rash TRAVEL OUTSIDE OF THE [place] IN LAST 30 DAYS: No - Related Data Allergies/Adverse Reactions: No Known Allergies Allergy (Verified 08/09/17 17:17) Past Medical History - Social History Chew tobacco use (# tins/day): No Frequency of alcohol use: None Drug Abuse: None Renal/ Medical History: Denies: Hx Peritoneal Dialysis - Immunizations Hx Diphtheria, Pertussis, Tetanus Vaccination: Yes History of Influenza Vaccine for 01/2017 - 06/2017 Season: No Physical Exam - Vital signs Vitals: Temp Pulse Resp BP Pulse Ox 98.0 F 81 18 153/83 H 99 08/09/17 17:17 08/09/17 17:17 08/09/17 17:17 08/09/17 17:17 08/09/17 17:17 Course - Vital Signs Vital signs: Temp Pulse Resp BP Pulse Ox 98.0 F 81 18 153/83 H 99 08/09/17 17:17 08/09/17 17:17 08/09/17 17:17 08/09/17 17:17 08/09/17 17:17
--- NOTE | 2017-08-09 17:59 | ER Document Report ---
ED General - General Chief Complaint: Allergic Reaction Stated Complaint: POSSIBLE ALLERGIC REACTION Time Seen by Provider: 08/09/17 17:46 Mode of Arrival: Ambulatory Information source: Patient Notes: 21-year-old female became very anxious at work with throat tightening and sensation of shortness of breath so she was sent to the emergency room by her boss. She started taking Zoloft yesterday and today. She thought maybe she was having allergic reaction to it. She has a history of bipolar with some anxiety. This time she is feeling anxious with burning sensations in her trunk. TRAVEL OUTSIDE OF THE [place] IN LAST 30 DAYS: No - Related Data Allergies/Adverse Reactions: No Known Allergies Allergy (Verified 08/09/17 17:17) Past Medical History - General Information source: Patient - Social History Smoking Status: Former Smoker Chew tobacco use (# tins/day): No Frequency of alcohol use: None Drug Abuse: None Family History: Reviewed & Not Pertinent Patient has suicidal ideation: No Patient has homicidal ideation: No - Medical History Medical History: Negative Renal/ Medical History: Denies: Hx Peritoneal Dialysis Surgical Hx: Negative - Immunizations Hx Diphtheria, Pertussis, Tetanus Vaccination: Yes Review of Systems - Review of Systems Constitutional: No symptoms reported EENT: No symptoms reported Cardiovascular: No symptoms reported Respiratory: No symptoms reported Gastrointestinal: No symptoms reported Genitourinary: No symptoms reported Female Genitourinary: No symptoms reported Musculoskeletal: No symptoms reported Skin: No symptoms reported Hematologic/Lymphatic: No symptoms reported Neurological/Psychological: See HPI Physical Exam - Vital signs Vitals: Temp Pulse Resp BP Pulse Ox 98.0 F 81 18 153/83 H 99 08/09/17 17:17 08/09/17 17:17 08/09/17 17:17 08/09/17 17:17 08/09/17 17:17 Interpretation: Normal - General General appearance: Appears well, Alert - HEENT Head: Normocephalic, Atraumatic Eyes: Normal Pupils: PERRL - Respiratory Respiratory status: No respiratory distress Chest status: Nontender Breath sounds: Normal Chest palpation: Normal - Cardiovascular Rhythm: Regular Heart sounds: Normal auscultation Murmur: No - Abdominal Inspection: Normal Distension: No distension Bowel sounds: Normal Tenderness: Nontender Organomegaly: No organomegaly - Back Back: Normal, Nontender - Extremities General upper extremity: Normal inspection, Nontender, Normal color, Normal ROM , Normal temperature General lower extremity: Normal inspection, Nontender, Normal color, Normal ROM , Normal temperature, Normal weight bearing. No: Espinoza's sign - Neurological Neuro grossly intact: Yes Cognition: Normal Orientation: AAOx4 [place] Coma Scale Eye Opening: Spontaneous [place] Coma Scale Verbal: Oriented [place] Coma Scale Motor: Obeys Commands Har[place] Coma Scale Total: 15 Speech: Normal Motor strength normal: LUE, RUE, LLE, RLE Sensory: Normal - Psychological Associated symptoms: Normal affect, Anxious - Skin Skin Temperature: Warm Skin Moisture: Dry Skin Color: Normal Course - Vital Signs Vital signs: Temp Pulse Resp BP Pulse Ox 98.9 F 92 18 126/82 H 99 08/09/17 19:30 08/09/17 19:30 08/09/17 19:30 08/09/17 19:29 08/09/17 19:30 Discharge - Discharge Clinical Impression: Anxiety Condition: Good Disposition: HOME, SELF-CARE Instructions: Anxiety ([facility]) Additional Instructions: Schedule appointment with [facility] tomorrow and tell them that you are not responding well to the Zoloft Return to the emergency room any concerns do not take the zoloft tomorrow morning Forms: Return to Work
[2017-08-09] MEDS ORDERED: LORAZEPAM 1 MG TABLET PO ONE (18:49)
[2017-08-09 19:30] VITALS: BP 126/82
== END 2017-08-09 19:33 | disposition home or self-care (01) ==
LOC: ER 17:12
DX: F41.9 Anxiety disorder, unspecified (principal); R06.02 Shortness of breath; R20.8 Other disturbances of skin sensation; Z87.891 Personal history of nicotine dependence
CPT/HCPCS: 99283; J3490 ×2; J7512

== ENCOUNTER 2017-08-15 01:57 | Emergency (ER) | payer MEDICAID ==
[2017-08-15 02:19] VITALS: BP 128/69
--- NOTE | 2017-08-15 03:48 | ER Document Report ---
ED General - General Chief Complaint: Other Stated Complaint: ANXIETY Time Seen by Provider: 08/15/17 02:26 Mode of Arrival: Ambulatory Information source: Patient Notes: 21-year-old female history of anxiety presents with a panic attack. Patient notes that she felt like she could not breathe her arm was numb. She denies any chest pain but admits to shortness of breath and tingling sensations. Patient notes while she was resting here her symptoms have since resolved TRAVEL OUTSIDE OF THE [place] IN LAST 30 DAYS: No - HPI Onset: Just prior to arrival Onset/Duration: Sudden Quality of pain: No pain Severity: Moderate Pain Level: Denies Associated symptoms: Other Exacerbated by: Denies Relieved by: Denies Similar symptoms previously: Yes Recently seen / treated by doctor: Yes - Related Data Allergies/Adverse Reactions: No Known Allergies Allergy (Verified 08/09/17 17:17) Past Medical History - Social History Smoking Status: Never Smoker Cigarette use (# per day): No Chew tobacco use (# tins/day): No Smoking Education Provided: No Family History: Reviewed & Not Pertinent Patient has suicidal ideation: No Patient has homicidal ideation: No Renal/ Medical History: Denies: Hx Peritoneal Dialysis - Immunizations Hx Diphtheria, Pertussis, Tetanus Vaccination: Yes Review of Systems - Review of Systems Notes: REVIEW OF SYSTEMS: CONSTITUTIONAL : Denies fever, chills, or sweats. Denies recent illness. EENT: Denies eye, ear, throat, or mouth pain or symptoms. Denies nasal or sinus congestion or discharge. Denies throat, tongue, or mouth swelling or difficulty swallowing. CARDIOVASCULAR: Denies chest pain. Denies palpitations or racing or irregular heart beat. Denies ankle edema. RESPIRATORY: Denies cough, cold, or chest congestion. Denies shortness of breath, difficulty breathing, or wheezing. GASTROINTESTINAL: Denies abdominal pain or distention. Denies nausea, vomiting , or diarrhea. Denies blood in vomitus, stools, or per rectum. Denies black, tarry stools. Denies constipation. GENITOURINARY: Denies difficulty urinating, painful urination, burning, frequency, blood in urine, or discharge. FEMALE GENITOURINARY: Denies vaginal bleeding, heavy or abnormal periods, irregular periods. Denies vaginal discharge or odor. MUSCULOSKELETAL: Denies back or neck pain or stiffness. Denies joint pain or swelling. SKIN: Denies rash, lesions or sores. HEMATOLOGIC : Denies easy bruising or bleeding. LYMPHATIC: Denies swollen, enlarged glands. NEUROLOGICAL: Denies confusion or altered mental status. Denies passing out or loss of consciousness. Denies dizziness or lightheadedness. Denies headache. Denies weakness or paralysis or loss of use of either side. Denies problems with gait or speech. Denies sensory loss, numbness, or tingling. Denies seizures. PSYCHIATRIC: Admits to panic attack ALL OTHER SYSTEMS REVIEWED AND NEGATIVE. PHYSICAL EXAMINATION: GENERAL: Well-appearing, well-nourished and in no acute distress. HEAD: Atraumatic, normocephalic. EYES: Pupils equal round and reactive to light, extraocular movements intact, conjunctiva are normal. ENT: Nares patent, oropharynx clear without exudates. Moist mucous membranes. NECK: Normal range of motion, supple without lymphadenopathy LUNGS: Breath sounds clear to auscultation bilaterally and equal. No wheezes rales or rhonchi. HEART: Regular rate and rhythm without murmurs ABDOMEN: Soft, nontender, nondistended abdomen. No guarding, no rebound. No masses appreciated. Female : deferred Musculoskeletal: Normal range of motion, no pitting or edema. No cyanosis. NEUROLOGICAL: Cranial nerves grossly intact. Normal speech, normal gait. Normal sensory, motor exams PSYCH: Admits to anxiety SKIN: Warm, Dry, normal turgor, no rashes or lesions noted. Dictation was performed using [employer] voice recognition software Physical Exam - Vital signs Vitals: Temp Pulse Resp BP Pulse Ox 97.7 F 72 20 128/69 H 99 08/15/17 02:18 08/15/17 02:18 08/15/17 02:18 08/15/17 02:18 08/15/17 02:18 Course - Re-evaluation Re-evalutation: 08/15/17 04:08 Patient symptoms have completely resolved she wishes to be discharged home she already has hydralazine Zoloft which have encouraged her to take which she has not been taking she has been anxious After performing a Medical Screening Examination, I estimate there is LOW risk for any life threatening mental health issues. At this time the patient looks extremely well and has not attempted severe self harm. I have reevaluated this patient multiple times and no significant life threatening changes are noted. The patient and I have discussed the diagnosis and risks, and we agree with discharging home with close follow-up with the understanding that symptoms and presentations can change. We also discussed returning to the Emergency Department immediately if new or worsening symptoms occur. We have discussed the symptoms which are most concerning (hallucinations, thoughts or actions of self harm or harm to others) that necessitate immediate return. - Vital Signs Vital signs: Temp Pulse Resp BP Pulse Ox 97.7 F 72 20 128/69 H 99 08/15/17 02:18 08/15/17 02:18 08/15/17 02:18 08/15/17 02:18 08/15/17 02:18 Discharge - Discharge Clinical Impression: Anxiety Condition: Stable Disposition: HOME, SELF-CARE Instructions: Anxiety ([facility]) Additional Instructions: Follow up with your physician tomorrow for further care or return to the ED IMMEDIATELY if symptoms worsen or new concerns occur. If you cannot afford to follow up with your primary care physician a list of low cost clinics have been provided at the end of your discharge papers as well.
== END 2017-08-15 04:26 | disposition home or self-care (01) ==
LOC: ER 01:57
DX: F41.9 Anxiety disorder, unspecified (principal); F41.0 Panic disorder [episodic paroxysmal anxiety]; T43.226A Underdosing of selective serotonin reuptake inhibitors, initial encounter; Z91.128 Patient's intentional underdosing of medication regimen for other reason; Z91.14 Patient's other noncompliance with medication regimen
CPT/HCPCS: 99283

== ENCOUNTER 2017-09-11 21:43 | Emergency (ER) | payer MEDICAID, OTHER ==
[2017-09-11] MEDS ORDERED: NORMAL SALINE 1000 ML 1,000 ML IV ONE (23:11)
[2017-09-11] MEDS ORDERED: KETOROLAC TROMETHAMINE INJ/PF 30 MG/1 ML SDV IV ONE (23:15)
[2017-09-12 00:29] LABS: ABSOLUTE EOSINOPHILS # (AUTO) 0.1 10^3/uL (0.0-0.6); ABSOLUTE LYMPHOCYTES (AUTO) 2.1 10^3/uL (0.5-4.7); ABSOLUTE NEUT (AUTO) 6.3 10^3/uL (1.7-8.2); BASOPHILS % (AUTO) 0.2 % (0-2); EOSINOPHILS % (AUTO) 0.6 % (0-6); HEMATOCRIT 37.9 % (36.0-47.0); HEMOGLOBIN 12.7 g/dL (12.0-15.5); LYMPHOCYTES % (AUTO) 22.1 % (13-45); MEAN CORPUSCULAR HEMOGLOBIN 28.9 pg (27.0-33.4); MEAN CORPUSCULAR HGB CONC 33.7 g/dL (32.0-36.0); MEAN CORPUSCULAR VOLUME 86 fl (80-97); PLATELET COUNT 260 10^3/uL (150-450); RED BLOOD COUNT 4.41 10^6/uL (3.72-5.28); RED CELL DISTRIBUTION WIDTH 13.7 % (11.5-14.0); SEGMENTED NEUTROPHILS % (AUTO) 66.1 % (42-78); TOTAL CELLS COUNTED % (AUTO) 100 %; WHITE BLOOD COUNT 9.5 10^3/uL (4.0-10.5)
[2017-09-12 00:38] LABS: ALANINE AMINOTRANSFERASE 25 U/L (9-52); ALBUMIN 4.1 g/dL (3.5-5.0); ALKALINE PHOSPHATASE 64 U/L (38-126); ANION GAP 12 (5-19); ASPARTATE AMINO TRANSFERASE 13 U/L (14-36); BILIRUBIN,DIRECT 0.1 mg/dL (0.0-0.4); BILIRUBIN,TOTAL 0.6 mg/dL (0.2-1.3); BLOOD UREA NITROGEN 8 mg/dL (7-20); CALCIUM 9.5 mg/dL (8.4-10.2); CARBON DIOXIDE 24 mmol/L (22-30); CHLORIDE 107 mmol/L (98-107); GLUCOSE 95 mg/dL (75-110); SODIUM 143.4 mmol/L (137-145); TOTAL PROTEIN 6.8 g/dL (6.3-8.2)
[2017-09-12 00:49] LABS: APPEARANCE,URINE CLOUDY; BILIRUBIN,URINE NEGATIVE (NEGATIVE); COLOR,URINE YELLOW; GLUCOSE, URINE NEGATIVE (NEGATIVE); KETONES,URINE NEGATIVE (NEGATIVE); LEUKOCYTE ESTERASE,URINE LARGE (NEGATIVE); NITRITE,URINE POSITIVE (NEGATIVE); PROTEIN,URINE 30 mg/dL (NEGATIVE); URINE SPECIFIC GRAVITY 1.012; UROBILINOGEN,URINE NEGATIVE mg/dL (<2.0)
[2017-09-12] MEDS ORDERED: CEFTRIAXONE 1 GM/D5W RTU 1 GM/50 ML RTUPB IV ONE (01:04)
--- NOTE | 2017-09-12 01:15 | ER Document Report ---
ED GI/ - General Mode of Arrival: Ambulatory Information source: Patient TRAVEL OUTSIDE OF THE [place] IN LAST 30 DAYS: No <KENA HERNANDEZ - Last Filed: 09/12/17 01:15> <HARVINDER SIMONS - Last Filed: 09/12/17 03:00> - General Chief Complaint: Flank Pain Stated Complaint: FEVERS Time Seen by Provider: 09/11/17 23:09 Notes: Patient is a 22-year-old female who presents to the emergency department today with complaints of "feeling like I have UTI". Patient states she has frequent UTIs and started developing symptoms this time about 6 days ago. Patient states her "kidney pain" was originally relieved with Tylenol and Motrin however today it was not relieved with those so she decided to come in. Patient states she has urinary urgency, frequency, and bilateral flank pain. Patient states she had a fever of 100.2 at home prior to arrival today but is afebrile here. Patient denies any nausea or vomiting. (KENA HERNANDEZ) - Related Data Allergies/Adverse Reactions: No Known Allergies Allergy (Verified 08/09/17 17:17) Past Medical History - General Information source: Patient - Social History Smoking Status: Never Smoker Cigarette use (# per day): No Frequency of alcohol use: None Drug Abuse: None Lives with: Family Family History: Reviewed & Not Pertinent - Medical History Medical History: Negative Renal/ Medical History: Denies: Hx Peritoneal Dialysis Surgical Hx: Negative - Immunizations Hx Diphtheria, Pertussis, Tetanus Vaccination: Yes <KENA HERNANDEZ - Last Filed: 09/12/17 01:15> Review of Systems - Review of Systems Constitutional: See HPI, Fever - subjective, reports fevers at home EENT: No symptoms reported Cardiovascular: No symptoms reported Respiratory: No symptoms reported Gastrointestinal: denies: Nausea, Vomiting Genitourinary: See HPI, Dysuria, Frequency, Flank pain - bilateral, Pain, Urgency, Retention Female Genitourinary: No symptoms reported Musculoskeletal: No symptoms reported Skin: No symptoms reported Hematologic/Lymphatic: No symptoms reported Neurological/Psychological: No symptoms reported -: Yes All other systems reviewed and negative <KENA HERNANDEZ - Last Filed: 09/12/17 01:15> Physical Exam <KENA HERNANDEZ - Last Filed: 09/12/17 01:15> <HARVINDER SIMONS - Last Filed: 09/12/17 03:00> - Vital signs Vitals: Pulse Resp BP Pulse Ox 88 16 121/59 L 99 09/12/17 00:54 09/12/17 00:54 09/12/17 00:54 09/12/17 00:54 - Notes Notes: Physical Exam: General: Alert, appears well. Eating crackers in room. HEENT: Normocephalic. Atraumatic. PERRL. Extraocular movements intact. Oropharynx clear. Neck: Supple. Non-tender. Respiratory: No respiratory distress. Clear and equal breath sounds bilaterally. Cardiovascular: Regular rate and rhythm. Abdominal: Normal Inspection. Non-tender. No distension. Normal Bowel Sounds. Back: Bilateral CVA tenderness to percussion, L>R. No deformity or step off. Extremities: Moves all four extremities. Upper extremities: Normal inspection. Normal ROM. Lower extremities: Normal inspection. No edema. Normal ROM. Neurological: Normal cognition. AAOx4. Normal speech. Psychological: Normal affect. Normal Mood. Skin: Warm. Dry. Normal color. (KENA HERNANDEZ) Course - Laboratory Result Diagrams: 09/12/17 00:05 09/12/17 00:05 <KENA HERNANDEZ - Last Filed: 09/12/17 01:15> - Laboratory Result Diagrams: 09/12/17 00:05 09/12/17 00:05 <HARVINDER SIMONS - Last Filed: 09/12/17 03:00> - Re-evaluation Re-evalutation: 09/12/17 02:59 Patient is a 22-year-old female who had urinary tract symptoms that began Sunday. She has had multiple UTIs in the past. Symptoms progressed and patient began having unbearable flank pain tonight. She is unable to get into her primary doctor's office and came to the emergency department for further evaluation. Blood work within normal limits. Patient is feeling better after Toradol. She is able to take p.o. Symptoms are consistent with pyelonephritis. Urine culture has been sent. Patient has been given a dose of Rocephin here in the emergency department and will be discharged home with Keflex. Return immediately if worsening or concerning symptoms such as fever, vomiting, increased pain, or further concerns. Is also recommended that she follow-up with urologist as she has had multiple UTIs. Understands and agrees to plan. Stable for discharge. (HARVINDER SIMONS) - Vital Signs Vital signs: Temp Pulse Resp BP Pulse Ox 98.6 F 90 18 101/53 L 99 09/12/17 02:56 09/12/17 02:56 09/12/17 02:56 09/12/17 02:56 09/12/17 02:56 - Laboratory Laboratory results interpreted by me: 09/12/17 09/12/17 00:05 00:15 AST 13 L Urine Protein 30 H Urine Blood LARGE H Urine Nitrite POSITIVE H Ur Leukocyte Esterase LARGE H Discharge <KENA HERNANDEZ - Last Filed: 09/12/17 01:15> <HARVINDER SIMONS - Last Filed: 09/12/17 03:00> - Discharge Clinical Impression: Pyelonephritis Condition: Stable Disposition: HOME, SELF-CARE Instructions: Pyelonephritis ([facility]), Rocephin ([facility]) Additional Instructions: Please talk to your doctor about seeing a urologist if you are getting frequent urinary tract infections. Prescriptions: Cephalexin Monohydrate [Keflex 500 mg Capsule] 500 mg PO Q6H 10 Days capsule Forms: Return to Work Referrals: NAE RAZA DO [Primary Care Provider] - Follow up in 3-5 days Scribe Attestation: 09/12/17 03:00 I personally performed the services described in the documentation, reviewed and edited the documentation which was dictated to the scribe in my presence, and it accurately records my words and actions. (HARVINDER SIMONS) Scribe Documentation - Scribe Written by Padmini:: Padmini Sanchez, 09/12/2017 0118 acting as scribe for :: Martha <KENA HERNANDEZ - Last Filed: 09/12/17 01:15>
[2017-09-12] MEDS ORDERED: PHENAZOPYRIDINE HCL 200 MG TABLET PO ONE (01:17)
[2017-09-12 02:58] VITALS: BP 101/53
== END 2017-09-12 02:56 | disposition home or self-care (01) ==
LOC: ER 21:43
DX: N12 Tubulo-interstitial nephritis, not specified as acute or chronic (principal)
CPT/HCPCS: 99284; 96361; 96375; 96365; 36415; 87086; 84703; 85025; 87088; 80053; 81001; 87186; J1885; J3490; J7030; J0696

== ENCOUNTER 2017-09-15 03:42 | Emergency (ER) | payer MEDICAID ==
[2017-09-15 03:48] VITALS: BP 123/74
== END 2017-09-15 04:24 | disposition left against medical advice (07) ==
LOC: ER 03:42
DX: Z53.21 Procedure and treatment not carried out due to patient leaving prior to being seen by health care provider (principal)

== ENCOUNTER 2017-10-18 02:52 | Emergency (ER) | payer MEDICAID ==
--- NOTE | 2017-10-18 04:30 | ER Document Report ---
ED General - General Chief Complaint: Chest Wall Pain Stated Complaint: CHEST PAIN Time Seen by Provider: 10/18/17 04:21 Mode of Arrival: Ambulatory Information source: Patient Notes: Patient is a 22-year-old female who presents with chief complaint of chest pain. Patient reports the chest pain is on the right side of the chest with some radiation to the left. Patient reports that she does have a history of anxiety however she reports that this feels slightly different. Patient reports that this chest pain woke her up from a sleep. Patient denies any associated symptoms to include nausea or shortness of breath. Patient did not become diaphoretic. Patient has not been ill and has not had any fevers. Patient does report a recent change in her medications, patient reports that she was taking Zoloft and was recently switched to Klonopin. Patient denies any other past medical or surgical history. TRAVEL OUTSIDE OF THE [place] IN LAST 30 DAYS: No - Related Data Allergies/Adverse Reactions: No Known Allergies Allergy (Verified 08/09/17 17:17) Past Medical History - General Information source: Patient - Social History Smoking Status: Never Smoker Frequency of alcohol use: None Drug Abuse: None Lives with: Family Family History: Reviewed & Not Pertinent Patient has suicidal ideation: No Patient has homicidal ideation: No Renal/ Medical History: Denies: Hx Peritoneal Dialysis Psychiatric Medical History: Reports: Hx Anxiety Surgical Hx: Negative - Immunizations Hx Diphtheria, Pertussis, Tetanus Vaccination: Yes Review of Systems - Review of Systems Constitutional: No symptoms reported EENT: No symptoms reported Cardiovascular: See HPI Respiratory: No symptoms reported Gastrointestinal: No symptoms reported Genitourinary: No symptoms reported Female Genitourinary: No symptoms reported Musculoskeletal: No symptoms reported Skin: No symptoms reported Hematologic/Lymphatic: No symptoms reported Neurological/Psychological: No symptoms reported Physical Exam - Vital signs Vitals: Temp Pulse Resp BP Pulse Ox 97.7 F 69 16 120/64 97 10/18/17 03:20 10/18/17 03:20 10/18/17 03:20 10/18/17 03:20 10/18/17 03:20 - Notes Notes: PHYSICAL EXAMINATION: GENERAL: Well-appearing, well-nourished and in no acute distress. HEAD: Atraumatic, normocephalic. EYES: Pupils equal round and reactive to light, extraocular movements intact, conjunctiva are normal. ENT: Nares patent, oropharynx clear without exudates. Moist mucous membranes. NECK: Normal range of motion, supple without lymphadenopathy LUNGS: Breath sounds clear to auscultation bilaterally and equal. No wheezes rales or rhonchi. HEART: Regular rate and rhythm without murmurs ABDOMEN: Soft, nontender, nondistended abdomen. No guarding, no rebound. No masses appreciated. Female : deferred Musculoskeletal: Normal range of motion, no pitting or edema. No cyanosis. NEUROLOGICAL: Cranial nerves grossly intact. Normal speech, normal gait. Normal sensory, motor exams PSYCH: Normal mood, normal affect. SKIN: Warm, Dry, normal turgor, no rashes or lesions noted. Course - Re-evaluation Re-evalutation: Otherwise healthy 22-year-old female presenting with chief complaint of chest pain. At the time of my evaluation, patient reports that her pain has completely resolved. Patient did have an EKG done by triage provider which was a sinus rhythm, rate of 69, normal axis with no ST segment elevations or depressions. QTC is 425. Patient is declining any further workup at this time , patient reports that now she does feel that it probably was her anxiety is patient reports that she has been having increased stress lately. Patient reports that she will follow-up with her primary care provider tomorrow as she reports that she already had an appointment scheduled to discuss her medications. Patient's vital signs are stable and patient will be discharged in stable condition. Patient does understand she does have back to the emergency department any time for reevaluation or come back if she develops chest pain or shortness of breath. - Vital Signs Vital signs: Temp Pulse Resp BP Pulse Ox 97.7 F 69 16 120/64 97 10/18/17 03:20 10/18/17 03:20 10/18/17 03:20 10/18/17 03:20 10/18/17 03:20 Discharge - Discharge Clinical Impression: Anxiety Chest pain Qualifiers: Chest pain type: unspecified Qualified Code(s): R07.9 - Chest pain, unspecified Condition: Stable Disposition: HOME, SELF-CARE Additional Instructions: Anxiety The physician feels that some of your health problems are being caused by anxiety. Anxiety affects your health in many ways. Anxiety alone can cause palpitations, sweats, chest pains, abdominal pains, shortness of breath, and headaches. It contributes to ulcer disease, high blood pressure, irritable bowel syndrome, and has been shown to cause flare-ups of many other diseases. Anxiety is not a simple disorder to treat. If the anxiety is due to recent life stresses, you may simply need time to "work through" the changes. If the anxiety is due to an underlying unhappiness with yourself or due to psychiatric disturbance, professional help will be needed. Your physician can refer you for further help if needed. Anti-anxiety medication is occasionally given if the stress is acute or if you are having trouble sleeping. Chronic or frequent use of these medications is not a good idea because the body becomes reliant on it, preventing you from dealing with life's normal stresses. Please follow-up with your primary care provider as discussed for further workup of your anxiety as well as medication adjustments. Please return to the emergency department if you develop any worsening symptoms to include chest pain , shortness of breath or any other symptoms that is concerning to. Referrals: NAE RAZA DO [Primary Care Provider] - Follow up as needed
[2017-10-18 04:39] VITALS: BP 105/59
--- NOTE | 2017-10-18 20:39 | EKG REPORT ---
SEVERITY:- NORMAL ECG - SINUS RHYTHM : Confirmed by: Ree Wright MD 18-Oct-2017 20:38:04
== END 2017-10-18 04:37 | disposition home or self-care (01) ==
LOC: ER 02:52
DX: R07.89 Other chest pain (principal); F41.9 Anxiety disorder, unspecified
CPT/HCPCS: 93005; 93010; 99284

== ENCOUNTER 2017-10-31 02:13 | Emergency (ER) | payer MEDICAID ==
[2017-10-31 02:21] VITALS: BP 125/76
--- NOTE | 2017-10-31 15:10 | EKG REPORT ---
SEVERITY:- NORMAL ECG - SINUS RHYTHM : Confirmed by: Ree Wright MD 31-Oct-2017 15:09:10
== END 2017-10-31 03:39 | disposition left against medical advice (07) ==
LOC: ER 02:13
DX: Z53.21 Procedure and treatment not carried out due to patient leaving prior to being seen by health care provider (principal)
CPT/HCPCS: 93005; 93010; 99284

== ENCOUNTER 2017-12-15 20:48 | Emergency (ER) | payer MEDICAID ==
[2017-12-15 21:11] VITALS: BP 126/71
--- NOTE | 2017-12-15 21:20 | EKG REPORT ---
SEVERITY:- NORMAL ECG - SINUS RHYTHM : Confirmed by: Jeanmarie Wick MD 15-Dec-2017 21:19:37
== END 2017-12-15 22:30 | disposition left against medical advice (07) ==
LOC: ER 20:48
DX: Z53.21 Procedure and treatment not carried out due to patient leaving prior to being seen by health care provider (principal); R00.2 Palpitations
CPT/HCPCS: 93005; 93010

== ENCOUNTER → 2018-05-03 | Outpatient (CLI) | payer MEDICAID ==
[2018-05-03 18:47] LABS: BACTERIA (WET MOUNT) 3+ BACTERIA SEEN; EPITHELIALS (WET MOUNT) 4+ EPITHELIALS SEEN; T.VAGINALIS (WET MOUNT) NO TRICHOMONAS SEEN; WBCS (WET MOUNT) 2+ WBCS SEEN; YEAST (WET MOUNT) NO YEAST SEEN
[2018-05-03 20:18] LABS: CHLAM PCR DETECTED (NOT DETECT); GON PCR NOT DETECTED (NOT DETECT)
== END ==
LOC: LAB 18:42
PROVIDERS: ATTEND Nurse Practitioner Acute Care
DX: N89.8 Other specified noninflammatory disorders of vagina (principal); R30.0 Dysuria
CPT/HCPCS: 87210; 87491; 87591

== ENCOUNTER → 2018-07-12 | Outpatient (CLI) | payer MEDICAID ==
[2018-07-12 18:43] LABS: BACTERIA (WET MOUNT) 4+ BACTERIA SEEN; T.VAGINALIS (WET MOUNT) NO TRICHOMONAS SEEN; WBCS (WET MOUNT) 4+ WBCS SEEN; YEAST (WET MOUNT) YEAST SEEN
[2018-07-12 18:44] LABS: EPITHELIALS (WET MOUNT) 3+ EPITHELIALS SEEN
[2018-07-12 20:10] LABS: CHLAM PCR DETECTED (NOT DETECT); GON PCR NOT DETECTED (NOT DETECT)
== END ==
LOC: LAB 18:09
PROVIDERS: ATTEND Nurse Practitioner Family
DX: N89.8 Other specified noninflammatory disorders of vagina (principal)
CPT/HCPCS: 87086; 87210; 87491; 87591

== ENCOUNTER 2019-01-05 05:36 | Emergency (ER) | payer MEDICAID ==
[2019-01-05 08:18] LABS: ABSOLUTE NEUT (AUTO) 6.7 10^3/uL (1.7-8.2); BASOPHILS % (AUTO) 0.2 % (0-2); EOSINOPHILS % (AUTO) 0.2 % (0-6); HEMATOCRIT 41.6 % (36.0-47.0); HEMOGLOBIN 14.1 g/dL (12.0-15.5); LYMPHOCYTES % (AUTO) 11.8 % (13-45); MEAN CORPUSCULAR HGB CONC 33.9 g/dL (32.0-36.0); MEAN CORPUSCULAR VOLUME 92 fl (80-97); MONOCYTES % (AUTO) 11.2 % (3-13); PLATELET COUNT 219 10^3/uL (150-450); RED BLOOD COUNT 4.54 10^6/uL (3.72-5.28); RED CELL DISTRIBUTION WIDTH 14.1 % (11.5-14.0); SEGMENTED NEUTROPHILS % (AUTO) 76.6 % (42-78); TOTAL CELLS COUNTED % (AUTO) 100 %; WHITE BLOOD COUNT 8.7 10^3/uL (4.0-10.5)
[2019-01-05 08:27] LABS: APPEARANCE,URINE CLEAR; BILIRUBIN,URINE NEGATIVE (NEGATIVE); COLOR,URINE STRAW; GLUCOSE, URINE NEGATIVE (NEGATIVE); KETONES,URINE TRACE mg/dL (NEGATIVE); LEUKOCYTE ESTERASE,URINE NEGATIVE (NEGATIVE); NITRITE,URINE NEGATIVE (NEGATIVE); PROTEIN,URINE NEGATIVE (NEGATIVE); URINE SPECIFIC GRAVITY 1.004; UROBILINOGEN,URINE NEGATIVE mg/dL (<2.0)
--- NOTE | 2019-01-05 08:27 | ER Document Report ---
ED General - General Chief Complaint: Vaginal Bleeding Stated Complaint: VAGINAL BLEEDING Time Seen by Provider: 01/05/19 08:08 TRAVEL OUTSIDE OF THE [place] IN LAST 30 DAYS: No - HPI Notes: Patient is a G2, P1 at 10 weeks gestation who presents emergency department for evaluation of vaginal bleeding. This week she got sick. She was diagnosed with strep throat. She had a fever last night. She took a temperature after Tylenol and was found to be 99.8. She went to sleep last night, awoke feeling as if she had have a bowel movement. She passed 2 small blood clots from her vagina. She states she still is having some mild active bleeding, only enough to warrant a pantiliner. She has has some mild cramping as well. She denies any fevers or chills. No nausea or vomiting. Taking her prenatals as prescribed. She does not know her blood type. She denies any other vaginal discharge or issues. - Related Data Allergies/Adverse Reactions: No Known Allergies Allergy (Verified 08/09/17 17:17) Home Medications: vitamin Past Medical History - General Information source: Patient - Social History Smoking Status: Never Smoker Chew tobacco use (# tins/day): No Frequency of alcohol use: None Drug Abuse: None Family History: Reviewed & Not Pertinent Patient has suicidal ideation: No Patient has homicidal ideation: No Renal/ Medical History: Denies: Hx Peritoneal Dialysis Psychiatric Medical History: Reports: Hx Anxiety - Immunizations Hx Diphtheria, Pertussis, Tetanus Vaccination: Yes Review of Systems - Review of Systems Constitutional: No symptoms reported EENT: No symptoms reported Cardiovascular: No symptoms reported Respiratory: No symptoms reported Gastrointestinal: No symptoms reported Genitourinary: No symptoms reported Female Genitourinary: See HPI Musculoskeletal: No symptoms reported Skin: No symptoms reported Neurological/Psychological: No symptoms reported Physical Exam - Vital signs Vitals: Temp Pulse Resp BP Pulse Ox 97.9 F 99 16 130/64 H 100 01/05/19 05:46 01/05/19 05:46 01/05/19 05:46 01/05/19 05:46 01/05/19 05:46 - Notes Notes: Vital signs reviewed, please refer to chart. Head is normocephalic, atraumatic. Pupils equal round, reactive to light. Neck is supple without meningismus. Heart is regular rate and rhythm. Lungs are clear to auscultation bilaterally. Abdomen is soft, nontender, normoactive bowel sounds throughout. Extremities without cyanosis, clubbing. Posterior calves are nontender. Peripheral pulses are equal. Skin is warm and dry. Patient is awake, alert, neurological exam is nonfocal. Course - Re-evaluation Re-evalutation: 01/05/19 08:26 Patient presents emergency department for evaluation of first trimester blee brad. Laboratory investigations obtained, pending at this time. Patient is comfortable, vitals are stable. She had a pelvic exam performed at the health department just a few days ago, all routine testing was performed. I do not see any indication at this time, particularly given the fact that she only has scant bleeding, and perform secondary pelvic exam. Transvaginal ultrasound ordered, will continue to monitor. 01/05/19 10:56 Ultrasound is unremarkable, beta is positive. No clear etiology for the bleeding is noted. She is Rh+. We will send the patient home with pelvic rest instructions, close follow-up with OB. She is to return to the ED with worsening. - Vital Signs Vital signs: Temp Pulse Resp BP Pulse Ox 97.9 F 99 16 130/64 H 100 01/05/19 05:46 01/05/19 05:46 01/05/19 05:46 01/05/19 05:46 01/05/19 05:46 - Laboratory Result Diagrams: 01/05/19 07:23 Laboratory results interpreted by me: 01/05/19 01/05/19 01/05/19 06:11 07:23 07:23 RDW 14.1 H Lymph % (Auto) 11.8 L Beta HCG, Quant 911839.00 H Urine Ketones TRACE H Urine Blood LARGE H Urine HCG, Qual POSITIVE H - Diagnostic Test Radiology reviewed: Reports reviewed Radiology results interpreted by me: 01/05/19 10:56 Obstetrics Ultrasound 01/05/19 08:25 IMPRESSION: LIVING INTRAUTERINE . EGA 10 weeks 5 days Trimester of : First trimester - 0 to 13 weeks. Discharge - Discharge Clinical Impression: First trimester bleeding Condition: Stable Disposition: HOME, SELF-CARE Instructions: Bleeding During Early ([facility]) Additional Instructions: Pelvic rest instructions as discussed. Follow-up with OB this week. Return to the emergency department with worsening or new concerning symptoms of any sort.
--- NOTE | 2019-01-05 09:06 | RADIOLOGY REPORT (SQ) ---
EXAM DESCRIPTION: U/S OB TRANSVAGINAL W/O DOP COMPLETED DATE/TIME: 01/05/2019 8:56 am REASON FOR STUDY: 10 weeks , bleeding COMPARISON: None. TECHNIQUE: Transvaginal static and realtime grayscale images acquired of the pelvis. Additional sabra cted spectral and color Doppler images recorded. All images stored on PACs. bHCG: Pending. CLINICAL DATES: 10 weeks 3 days LIMITATIONS: None. FINDINGS: FETUS: Single Living intrauterine . ULTRASOUND EGA: 10 weeks 5 days ULTRASOUND SHRUTI: 07/29/2019 EFW: Not applicable less than 20 weeks. CRL: 3.8 cm FHR: 155 beats per minute. SURVEY: Too early to assess. AMNIOTIC FLUID: Adequate amount. PLACENTA: Not yet developed due to early gestation. SUBCHORIONIC BLEED: No SIZE OF BLEED: Not applicable. UTERUS: No masses. No anomalies. CERVICAL LENGTH: 3.2 cm Closed. RIGHT ADNEXA: Is No adnexal free fluid. No adnexal masses. LEFT ADNEXA: Normal ovary with normal vascular flow. No adnexal free fluid. No adnexal masses. FREE FLUID: None. OTHER: No other significant finding. IMPRESSION: LIVING INTRAUTERINE . EGA 10 weeks 5 days Trimester of : First trimester - 0 to 13 weeks. TECHNICAL DOCUMENTATION: JOB ID: [id number] [employer]- All Rights Reserved rev Reading location - IP/workstation name: [email or web address]
[2019-01-05 11:27] VITALS: BP 111/61
== END 2019-01-05 11:26 | disposition home or self-care (01) ==
LOC: ER 05:36
DX: O46.91 Antepartum hemorrhage, unspecified, first trimester (principal); O26.891 Other specified pregnancy related conditions, first trimester; R50.9 Fever, unspecified; Z3A.10 10 weeks gestation of pregnancy
CPT/HCPCS: 36415; 76817; 81001; 81025; 84702; 85025; 86900; 86901; 99284

== ENCOUNTER → 2020-04-19 | Outpatient (CLI) | payer SELFPAY ==
--- NOTE | 2020-04-19 16:06 | RADIOLOGY REPORT (SQ) ---
EXAM DESCRIPTION: U/S [id number] TRNABD 1GES W/ODOP IMAGES COMPLETED DATE/TIME: 04/19/2020 3:29 pm REASON FOR STUDY: (Z34.81)ENCOUNTER FOR SUPRVSN OF NORMAL , FIRST TRIMESTER Z34.81 ENCOUNT ER FOR SUPRVSN OF NORMAL , FIRST TRIM COMPARISON: None. TECHNIQUE: Transabdominal static and realtime grayscale images acquired of the pelvis. Additional se lected spectral and color Doppler images recorded. All images stored on PACs. bHCG: Not available. CLINICAL DATES: LMP 01/24/2020 12 weeks 2 days. LIMITATIONS: None. FINDINGS: FETUS: Single Living intrauterine . ULTRASOUND EGA: 12 weeks 1 day ULTRASOUND SHRUTI: 10/31/2020 EFW: Not applicable less than 20 weeks. CRL: 5.6 cm. FHR: 178 beats per minute. SURVEY: Too early to assess. AMNIOTIC FLUID: Adequate amount. PLACENTA: Not yet developed due to early gestation. SUBCHORIONIC BLEED: Yes SIZE OF BLEED: 2.4 x 1.8 x 0.6 cm UTERUS: No masses. No anomalies. CERVICAL LENGTH: 2.3 cm. Closed. RIGHT ADNEXA: Normal ovary with normal vascular flow. 2.6 x 2.9 x 1.7 cm. No adnexal free fluid. No adnexal masses. LEFT ADNEXA: Normal ovary with normal vascular flow. 2.7 x 1.6 x 1.7 cm. No adnexal free fluid. No adnexal masses. FREE FLUID: None. OTHER: No other significant finding. IMPRESSION: LIVING INTRAUTERINE . EGA 12 weeks 1 day. Trimester of : First trimester - 0 to 13 weeks. TECHNICAL DOCUMENTATION: JOB ID: [id number] 2010 [employer]- All Rights Reserved rev-08/24 Reading location - IP/workstation name: [email or web address]
== END ==
LOC: RAD 14:30
PROVIDERS: ATTEND Midwife
DX: Z34.81 Encounter for supervision of other normal pregnancy, first trimester (principal); Z3A.12 12 weeks gestation of pregnancy
CPT/HCPCS: 76801

== ENCOUNTER → 2020-05-04 | Outpatient (CLI) | payer SELFPAY ==
--- NOTE | 2020-05-04 15:30 | RADIOLOGY REPORT (SQ) ---
EXAM DESCRIPTION: U/S OB 14+ TRNABD 1GES W/O DOP IMAGES COMPLETED DATE/TIME: 05/04/2020 2:34 pm REASON FOR STUDY: (Z34.82)ENCOUNTER FOR SUPRVSN OF NORMAL , SECOND TRIMESTER Z34.[address] FOR SUPRVSN OF NORMAL , SECOND TRI COMPARISON: 04/19/2020 TECHNIQUE: Static and Dynamic grayscale imaging performed of gravid uterus using transabdominal appr oach. Additional selected color Doppler and spectral images recorded. All stored on PACS. LIMITATIONS: None. FINDINGS: FETUSES SEEN:1 EGA: 14 weeks 3 days Calculated using BPD,FL,HC,AC documented on images. No discrepancy with clinica l dates. SHRUTI: 10/30/2020 EFW: Not calculated. PERCENTILE: Not calculated. LVP: 3.7 x 4.7 cm. PLACENTA: Anterior. GRADE: I PRESENTATION: Variable ANATOMY: HEART RATE: 173 beats per minute. Complete anatomical survey was not performed. MATERNAL ADNEXA: Ovaries are unremarkable. CERVICAL LENGTH: 3.5 cm. Closed. OTHER: Possible arcuate uterus. IMPRESSION: LIVING INTRAUTERINE . ESTIMATED GESTATIONAL AGE 14 weeks 3 days. Trimester of : Second trimester - 13 weeks 1 day to 27 weeks 6 days. TECHNICAL DOCUMENTATION: JOB ID: [id number] 2010 [employer]- All Rights Reserved Reading location - IP/workstation name: [email or web address]
== END ==
LOC: RAD 14:00
PROVIDERS: ATTEND Midwife
DX: Z34.82 Encounter for supervision of other normal pregnancy, second trimester (principal)
CPT/HCPCS: 76805